=== PATIENT | male | born 1985 | race Caucasian/White ===

== ENCOUNTER 2017-03-01 13:52 | Emergency (ER) | payer OTHER ==
[~2017-03-01] VITALS: Ht 185.4 cm; Wt 75.0 kg
[~2017-03-01 13:52] MED LIST: ANTIFUNGAL30 GM TP; ATARAX,VISTARIL50 MG PO; CYCLOBENZAPRINE5 MG; EFFEXOR XR150 MG PO; EFFEXOR37.5 MG PO; FLEXERIL10 MG PO; FLEXERIL5 MG PO; KENALOG,ARISTOC15 G1 TP; KLONOPIN0.5 M1 PO; LEXAPRO10 MG PO; MOTRIN IB200 MG PO; MULTIVITAMIN1 EAC2 PO; NOHOMEMEDS; NORCO 5/3251 TABLET PO; PREDNISONE10 MG PO; PREDNISONE20 MG PO; TRAMADOL HCL50 MG; TRAMADOL HCL50 MG PO; TYLENOL WITH C1 EACH PO; ULTRAM50 MG; VALIUM5 MG PO; XANAX0.5 MG PO
[2017-03-01 14:35] LABS: HEMATOCRIT 44.7 % (38.0-50.0); MCH 30.9 PG (29.0-34.0); MCHC 34.5 G/DL (30.0-36.0); MCV 89.6 FL (86-99); MEAN PLAT.VOLUME 11.1 uM^3 (9.0-12.4); PLATELET COUNT 193 K/uL (156-360); RBC DIS.WIDTH-CV 12.2 % (11.8-14.6); RBC DIS.WIDTH-SD 40.2 % (39-53); RED BLOOD COUNT 4.99 M/uL (4.00-5.50); WHITE BLOOD COUNT 9.1 K/uL (4.1-10.2)
[2017-03-01 14:47] LABS: CHLORIDE 104 mEq/L (99-109); SODIUM 137 mEq/L (136-147)
[2017-03-01 14:49] LABS: GLUCOSE 102 mg/dL (70-99)
[2017-03-01 14:50] LABS: ANION GAP 16 MEQ/L (2-14)
[2017-03-01 14:51] LABS: TOTAL BILIRUBIN 0.9 mg/dL (0.0-1.0)
[2017-03-01 14:52] LABS: SERUM ETHYL ALCOHOL < 10 mg/dL
[2017-03-01 14:53] LABS: ALKALINE PHOSPHATASE 92 IU/L (3-129); GFR ESTIMATE (CALCULATED) > 59 mL/min/
[2017-03-01 14:54] LABS: UREA NITROGEN (BUN) 15 mg/dL (9-23)
[2017-03-01] MEDS ORDERED: PROMETHAZINE HC50 M1 PO (16:02)
[2017-03-01] MEDS ORDERED: CLONIDINE HCL0.1 MG PO (16:03)
[2017-03-01 16:08] LABS: AMPHETAMINE NEGATIVE (500 ng/mL); BARBITURATES NEGATIVE (200 ng/mL); BENZODIAZEPINES PRESUMPTIVE POSITIVE (150 ng/mL); COCAINE NEGATIVE (150 ng/mL); METHADONE NEGATIVE (200 ng/mL); METHAMPHETAMINE NEGATIVE (500 ng/mL); OPIATES (MORPHINE) PRESUMPTIVE POSITIVE (100 ng/mL); OXYCODONE PRESUMPTIVE POSITIVE (100 ng/mL); PHENCYCLIDINE NEGATIVE (25 ng/mL); PROPOXYPHENE NEGATIVE (300 ng/mL); THC CANNABINOIDS PRESUMPTIVE POSITIVE (50 ng/mL); TRICYCLIC ANTIDEPRESSANTS NEGATIVE (300 ng/mL)
[2017-03-01 16:09] LABS: ADD MEDTOX COMMENT Y
[2017-03-01 16:14] LABS: ADD MIUA? YES; BILIRUBIN NEGATIVE; BLOOD NEGATIVE; COLOR YELLOW ((YELLOW)); GLUCOSE (STRIP) NEGATIVE; KETONES 80; LEUKOCYTES NEGATIVE; NITRITE NEGATIVE; PROTEIN (STRIP) 30; SPECIFIC GRAVITY 1.024 (1.000-1.030)
[2017-03-01 16:21] VITALS: BP 103/62
[2017-03-01 16:27] LABS: BENZODIAZEPINES QUANT VALUE 0 NG/ML; OPIATES QUANTITATIVE VALUE 0 NG/ML
[2017-03-01 16:28] LABS: BENZODIAZEPINES, URINE SCREEN Negative (200 ng/mL)
[2017-03-01 16:34] LABS: INTERNAL CONTROLS VALID? YES
[2017-03-01 16:37] LABS: BACTERIA NONE SEEN /HPF; EPITHELIAL CELLS NONE SEEN /HPF; MUCUS 4+ /LPF; RED BLOOD CELLS 0-5 /HPF (0-5); WHITE BLOOD CELLS 0-5 /HPF (0-5)
== END 2017-03-01 16:21 | disposition home or self-care (01) ==
LOC: EME 13:52
PROVIDERS: Emergency Medicine
DX: F11.23 Opioid dependence with withdrawal (principal); F19.10 Other psychoactive substance abuse, uncomplicated; Z88.6 Allergy status to analgesic agent; Z88.0 Allergy status to penicillin
CPT/HCPCS: 80053; 81003; 84999; 85027; 93005; 99281; 99285; G0480; J7030; Q0169